=== PATIENT | female | born 1975 | race Caucasian/White ===

== ENCOUNTER 2018-10-08 16:12 | Emergency (ER) | payer OTHER ==
[2018-10-08] MEDS ORDERED: NS 1,000 ML IV ONE (16:13)
--- NOTE | 2018-10-08 16:17 | EDPHY ---
H & P Time Seen by Provider: 10/08/18 16:15 HPI/ROS: HPI Lower abdominal pain. 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 She developed lower abdominal pain which she describes as sharp, aching and stabbing and very intense, coming on in waves, onset about 2 hr prior to arrival. She had associated diaphoresis and trembling with this pain. She felt the urge to defecate. She did have a bowel movement but had no relief. The pain worsened and EMS was called to the scene. She has been given 100 mcg of IV fentanyl, 4 mg of oral Zofran and 4 mg of IV Zofran on the way to the hospital. She is feeling better now but still has the pain to a lesser degree. Last menstrual period ended on September 24. Last bowel movement was just prior to arrival. Described as normal. No bloody or melenic stool. Last meal was 3 hr ago. No foreign travel. No change in diet. No ill contacts. She has had associated nausea but no vomiting. ROS: Constitutional: No fever, no chills. No weakness. Eyes: No discharge. No changes in vision. ENT: No sore throat. No nasal congestion or rhinorrhea. Respiratory: No cough. No shortness of breath. Cardiac: No chest pain, no palpitations. Gastrointestinal: As above, no vomiting, no diarrhea. Genitourinary: No hematuria. No dysuria or increased frequency with urination. No vaginal bleeding or discharge. Musculoskeletal: No back pain. No neck pain. No myalgias or arthralgias. Skin: No rashes. Neurological: No headache. No focal weakness or altered sensation. Past medical history: Depression, anxiety. She takes Lexapro and Wellbutrin. Social history: Nonsmoker. No alcohol. Works as a high school social science teacher. Currently here by herself. Physical Exam: General Appearance: Alert, no distress at this time. This patient is responding to questions appropriately and in full sentences. This patient appears well-hydrated and well-nourished. Eyes: Pupils equal and round no pallor or injection. No lid edema, erythema or injection. Respiratory: There are no retractions, lungs are clear to auscultation with good air movement bilaterally. Cardiovascular: Regular rate and rhythm. No murmur. Gastrointestinal: Abdomen is soft with vague lower abdominal tenderness on palpation and periumbilical tenderness on palpation, no masses, bowel sounds normal. No focal tenderness at McBurney's point. No Cowan sign. Neurological: Motor sensory function is grossly intact. Cranial nerves are normal. Gait is normal. Skin: Warm and dry, no rashes. Musculoskeletal: No CVA tenderness on palpation bilaterally. Extremities are symmetrical. All joints range without pain or impingement. Psychiatric: No agitation. No depression. Database: EKG: Imaging: Procedures: Emergency department course: Triage vital signs reviewed and are normal. She was started on IV normal saline 1 L by EMS. She will be continued on this. Currently she does not require more pain medication. CT imaging to be obtained to evaluate for possible appendicitis verses volvulus. Patient consents to emergency department workup. 5:00 p.m., patient re-evaluated, she had a large bowel movement, loose stool, she is now feeling much better and completely relieved of any pain. Repeat abdominal exam she is soft, nontender non distended, her bowel sounds are active. She wants to decline her CT scan. I feel this is reasonable. She does feel comfortable going home at this time and is requesting discharge. Follow-up and return to emergency department precautions reviewed with her. All of her questions were answered. She was discharged from the emergency department in good condition. Differential Diagnosis: The differential diagnosis on this patient includes but is not limited constipation, enteritis. Ovarian torsion, ectopic , volvulus, appendicitis unlikely. This represents a partial list of diagnoses considered. These considerations are based on history, physical exam, past history, reassessment and diagnostic testing. Constitutional: Initial Vital Signs Temperature (C) 36.6 C 10/08/18 16:17 Heart Rate 65 10/08/18 16:17 Respiratory Rate 17 10/08/18 16:17 Blood Pressure 106/78 10/08/18 16:17 O2 Sat (%) 98 10/08/18 16:17 O2 Delivery Mode Room Air Medical Decision Making - Data Points Laboratory Results: Laboratory Results 10/08/18 16:34 10/08/18 16:34 10/08/18 10/08/18 10/08/18 16:34 16:34 16:34 WBC 6.82 10^3/uL 10^3/uL (3.80-9.50) RBC 4.62 10^6/uL 10^6/uL (4.18-5.33) Hgb 14.5 g/dL g/dL (12.6-16.3) Hct 41.3 % % (38.0-47.0) MCV 89.4 fL fL (81.5-99.8) MCH 31.4 pg pg (27.9-34.1) MCHC 35.1 g/dL g/dL (32.4-36.7) RDW 11.2 % L % (11.5-15.2) Plt Count 172 10^3/uL 10^3/uL (150-400) MPV 11.6 fL fL (8.7-11.7) Neut % (Auto) 63.7 % % (39.3-74.2) Lymph % (Auto) 23.0 % % (15.0-45.0) Schley % (Auto) 10.7 % % (4.5-13.0) Eos % (Auto) 1.9 % % (0.6-7.6) Baso % (Auto) 0.6 % % (0.3-1.7) Nucleat RBC Rel Count 0.0 % % (0.0-0.2) Absolute Neuts (auto) 4.34 10^3/uL 10^3/uL (1.70-6.50) Absolute Lymphs (auto) 1.57 10^3/uL 10^3/uL (1.00-3.00) Absolute Monos (auto) 0.73 10^3/uL 10^3/uL (0.30-0.80) Absolute Eos (auto) 0.13 10^3/uL 10^3/uL (0.03-0.40) Absolute Basos (auto) 0.04 10^3/uL 10^3/uL (0.02-0.10) Absolute Nucleated RBC 0.00 10^3/uL 10^3/uL (0-0.01) Immature Gran % 0.1 % % (0.0-1.1) Immature Gran # 0.01 10^3/uL 10^3/uL (0.00-0.10) Sodium 137 mEq/L mEq/L (135-145) Potassium 3.5 mEq/L mEq/L (3.3-5.0) Chloride 104 mEq/L mEq/L (97-110) Carbon Dioxide 22 mEq/l mEq/l (22-31) Anion Gap 11 mEq/L mEq/L (6-14) BUN 17 mg/dL mg/dL (7-23) Creatinine 0.8 mg/dL mg/dL (0.6-1.0) Estimated GFR > 60 Glucose 101 mg/dL H mg/dL (70-100) Calcium 10.0 mg/dL mg/dL (8.5-10.4) Total Bilirubin 0.8 mg/dL mg/dL (0.1-1.4) Conjugated Bilirubin 0.2 mg/dL mg/dL (0.0-0.5) Unconjugated Bilirubin 0.6 mg/dL mg/dL (0.0-1.1) AST 29 IU/L IU/L (14-46) ALT 30 IU/L IU/L (9-52) Alkaline Phosphatase 53 IU/L IU/L (38-126) Total Protein 7.2 g/dL g/dL (6.3-8.2) Albumin 4.5 g/dL g/dL (3.5-5.0) Beta HCG, Qual NEGATIVE Medications Given: Discontinued Medications Sodium Chloride (Ns) 1,000 mls @ 0 mls/hr IV EDNOW ONE; Wide Open PRN Reason: Protocol Stop: 10/08/18 16:14 Last Admin: 10/08/18 16:28 Dose: 1,000 mls Departure - Departure Disposition: Home, Routine, Self-Care Clinical Impression: Lower abdominal pain, Constipation Condition: Good Instructions: Constipation (ED), High Fiber Diet (ED), Abdominal Pain (ED) Additional Instructions: Read and follow provided instructions. Follow-up with your primary care physician tomorrow regarding your Wellbutrin extended release dosing Return to the emergency department for return of pain, vomiting, bloody stool or other serious concerns. Referrals: Patient,NotPresent [Unknown] - As per Instructions
[2018-10-08 16:24] VITALS: BP 106/78
[2018-10-08 16:42] LABS: PLATELET COUNT 172 10^3/uL (150-400)
[2018-10-08] MEDS ORDERED: IOPAMIDOL (ISOVUE-300) 100 ML BTL ONE (17:05)
== END 2018-10-08 17:18 | disposition home or self-care (01) ==
LOC: EDUNIT#
DX: K59.00 Constipation, unspecified (principal); F32.9 Major depressive disorder, single episode, unspecified; F41.9 Anxiety disorder, unspecified; Z79.899 Other long term (current) drug therapy
CPT/HCPCS: Q9967